=== PATIENT | male | born 1995 | race Two or more races ===

== ENCOUNTER 2017-07-29 18:13 | Emergency (ER) | payer OTHER, MEDICAID ==
[~2017-07-29] VITALS: Ht 182.9 cm; Wt 66.2 kg
[~2017-07-29 18:13] MED LIST: INSLANTI; INSUPOW
[2017-07-29 19:38] VITALS: BP 113/68
== END 2017-07-29 21:48 | disposition home or self-care (01) ==
LOC: ER 18:22
DX: J40 Bronchitis, not specified as acute or chronic (principal); E11.9 Type 2 diabetes mellitus without complications